=== PATIENT | female | born 1965 | race Caucasian/White ===

== ENCOUNTER 2018-09-28 09:30 | Day surgery (SDC) | payer OTHER ==
[2018-09-28] MEDS ORDERED: LIDOCAINE 2% (SDV) 5 ML INJ (10:48)
[2018-09-28] MEDS ORDERED: PROPOFOL 60 ML (10:48)
[2018-09-28] MEDS ORDERED: LABETALOL HCL 20MG INJ IV (11:00)
[2018-09-28] MEDS ORDERED: ALBUTEROL 0.083% (NEB) 2.5 MG/3 ML AMP HHN (11:00)
[2018-09-28] MEDS ORDERED: FENTAnyl 50 MCG/ML VIAL IV ×2 (11:00)
[2018-09-28] MEDS ORDERED: EPHEDrine 25 MG/5 ML SYG IV (11:00)
[2018-09-28] MEDS ORDERED: hydrALAzine 20 MG INJ IV (11:00)
[2018-09-28] MEDS ORDERED: ONDANSETRON 4 MG INJ IV (11:00)
== END 2018-09-28 13:28 | disposition home or self-care (01) ==
LOC: GIL 09:30
DX: K92.1 Melena (principal); K64.8 Other hemorrhoids; K57.30 Diverticulosis of large intestine without perforation or abscess without bleeding; K21.9 Gastro-esophageal reflux disease without esophagitis; E78.5 Hyperlipidemia, unspecified; D12.3 Benign neoplasm of transverse colon; F17.200 Nicotine dependence, unspecified, uncomplicated; M06.9 Rheumatoid arthritis, unspecified
CPT/HCPCS: 43239; 88305